=== PATIENT | male | born 1995 | race Caucasian/White ===

== ENCOUNTER 2024-07-18 09:27 | Emergency (ER) | payer OTHER, SELFPAY ==
[2024-07-18 09:29] VITALS: BP 143/86
--- NOTE | 2024-07-18 10:22 | ED.GENMED ---
History of Present Illness
General
Chief Complaint: Swelling
Time Seen by Provider: 07/18/24 10:00
History of Present Illness
History of Present Illness:
29-year-old male with history of high-grade AV block status post pacemaker presents to the emergency department for evaluation of left-sided neck swelling for the past several days. Denies any dysphagia or voice changes. No fevers but does have
occasional night sweats intermittently for the past several months. No chest pain or dyspnea. Denies any weight loss
Past History
Past History
ED Past Medical History: None
ED Past Surgical History: None
Social History
Tobacco: Non-smoker
Alcohol: Occasional
Employment: Employed
Family History
Family History: Negative Early CAD
Review of Systems
Review of Systems
Allergies reviewed?: Yes
All Other Systems: ROS reviewed and negative except as documented in HPI and ROS
Phy Exam
Physical Exam
Physical Exam:
GEN: Well appearing, NAD, WDWN
HEENT: Oral mucosa moist, no scleral icterus. Large mass to the left SCM muscle likely adenopathy, no associated posterior chain or right sided adenopathy, no supraclavicular adenopathy. Oropharynx clear with no swelling or uvular deviation
Cardiac: Regular rate
Lung: No respiratory distress, no tachypnea
MSK: No gross deformity or injuries
Skin: Good color, no pallor or jaundice, no rashes
Neuro: AO x3, moves all extremities freely
Psych: Calm, cooperative
Course
Orders/Labs/Results
Orders:
Orders
07/18/24 10:10
CT Neck With Iv Contrast Urgent
Comment:
Reason For Exam: L neck mass
07/18/24 10:39
Complete Blood Count/With Diff Urgent
Comprehensive Metabolic Panel Urgent
Abnormal Lab Results
07/18/24
10:39
RBC 4.64 L 10^6/uL
(4.70-6.10)
Hct 38.5 L %
(39.0-52.0)
07/18/24 10:39
07/18/24 10:39
Vital Signs
Initial and Last Documented VS:
Initial Vital Signs
Temp Pulse Resp BP Pulse Ox
97.6 F 64 16 143/86 100
07/18/24 09:29 07/18/24 09:29 07/18/24 09:29 07/18/24 09:29 07/18/24 09:29
Last Documented Vital Signs
Temp Pulse Resp BP Pulse Ox
97.6 F 64 16 143/86 100
07/18/24 09:29 07/18/24 09:29 07/18/24 09:29 07/18/24 09:29 07/18/24 09:29
MDM/Problems Addressed
MDM/Problems Addressed:
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 Will refer to ENT as an outpatient
*Critical Care Note
Total Time (30-74mins, 75-104mins- exclusive of procedures): Not Applicable
ED Attending Note
-
Portions of this chart may have been created with voice recognition software.� Occasional wrong word or��sound alike� substitutions may have occurred due to the inherent limitations of voice recognition software.
Discharge Plan
Departure
Patient Disposition: Home (Routine Discharge)
Date of Disposition: 07/18/24
Time of Disposition: 11:57
Patient with high blood pressure during this ER visit?: No
Discharge Problem:
Branchial cleft cyst
Referrals:
Hira Bailon MD [Active] -
Hira Sherman DO [Family Provider] -
Activity Restrictions/Additional Instructions:
Your Neck mass most likely is a branchial cleft cyst which is a fluid-filled sac that has been present since , but became inflamed for unknown reasons. This can be followed up by a head and neck surgeon to discuss further management
Interventions
Interventions:
*Risk Screen - Suicide Last Done: 07/18/24 09:29
*General Assessment Last Done: 07/18/24 09:29
*Neglect/Abuse Screening Last Done: 07/18/24 09:29
ED- Fall Risk Assessment Last Done: 07/18/24 12:14
*ED COVID-19 Vaccine History Last Done: 07/18/24 09:29
*Nursing Disposition Last Done: 07/18/24 12:14
ED- Cardiac Assessment Last Done: 07/18/24 12:13
ED- Pulmonary Assessment Last Done: 07/18/24 12:13
ED-Skin Assessment Last Done: 07/18/24 12:13
Discharge Date and Time
Discharge Date/Time: 07/18/24 12:14
Print Language: [id number]
[2024-07-18 10:48] LABS: % Basophils 0.4 % (0-2); % Eosinophils 2.3 % (0-6); % Immature Granulocytes 0.3 % (0-0.5); % Lymphocytes 26.7 % (20.5-51.1); % Monocytes 7.4 % (1.7-9.3); % Neutrophils 62.9 % (42.2-75.2); Absolute Eosinophils 0.2 10^3/uL (0-0.7); Absolute Lymphocytes 1.8 10^3/uL (1.2-3.4); Absolute Monocytes 0.5 10^3/uL (0.1-0.6); Absolute Neutrophils 4.3 10^3/uL (1.4-6.5); Hematocrit 38.5 % (39.0-52.0); Hemoglobin 13.4 g/dL (13.0-18.0); Mean Corp Hgb Conc. 34.8 g/dL (33.0-37.0); Mean Corpuscular Hgb 28.9 pg (27.0-31.0); Mean Platelet Volume 8.8 fL (7.4-10.4); Nucleated Red Blood Cells % 0 % (-); Platelet Count 224 10^3/uL (130-400); Red Blood Cell Count 4.64 10^6/uL (4.70-6.10); Red Cell Dist. Width 12.3 % (11.5-14.5); White Blood Cell Count 6.9 10^3/uL (4.8-10.8)
[2024-07-18 11:25] LABS: ALT (SGPT) 16 U/L (0-50); AST (SGOT) 25 U/L (17-59); Albumin 4.4 g/dl (3.5-5.0); Alkaline Phosphatase 47 U/L (38-126); Blood Urea Nitrogen 16 mg/dl (9-20); Calcium 9.1 mg/dl (8.4-10.2); Carbon Dioxide 29 mmol/L (22-30); Chloride 103 mmol/L (98-107); Glucose 81 mg/dl (70-99); Potassium 4.7 mmol/L (3.5-5.1); Sodium 141 mmol/L (135-145); Total Bilirubin 0.4 mg/dl (0.2-1.3); eGFR > 60.00
== END 2024-07-18 12:14 | disposition home or self-care (01) ==
LOC: EMR 09:27
PROVIDERS: Physician Assistant; EMERGENCY PHYSICIAN Emergency Medicine; FAMILY PHYSICIAN Internal Medicine
DX: Q18.0 Sinus, fistula and cyst of branchial cleft (principal); Z95.0 Presence of cardiac pacemaker
CPT/HCPCS: 99285; 70491; 80053; 85025; Q9967